=== PATIENT | female | born 1985 | race Caucasian/White ===

== ENCOUNTER → 2020-08-17 12:29 | Outpatient (CLI) | payer OTHER, SELFPAY ==
--- NOTE | ~2020-08-17 | US_ITS ---
EXAMINATION: US abdomen complete EXAM DATE: 08/17/2020 13:09 INDICATION: R17 - Unspecified jaundice. Elevated bilirubin. Anemia. Blood disorder. Hereditary sphero cytosis. TECHNIQUE: Multiple grayscale and Doppler images of the complete abdomen were obtained (by a technolo migdalia who performed the scan) and subsequently reviewed. There is no prior study for comparison. FINDINGS: The abdominal aorta is normal in caliber. Visualized portion IVC is patent. The pancreatic head a nd body are normal in appearance. The pancreatic tail is not visualized. The liver has normal echogenicity and contour. There are no focal liver lesions identified. There is no evidence of intrahepatic biliary duct dilation. Portal venous flow was seen in the hepatopedal , normal direction and has normal Doppler waveform. Common bile duct measures 5 mm, which is normal. The gallbladder fossa is unremarkable. Right kidney: There is normal contour and echogenicity. It measures 11.2 x 3.9 x 5.0 centimeters. There are no focal renal lesions identified. There is no hydronephrosis. Left kidney: There is normal contour and echogenicity. It measures 11.3 x 7.3 x 6.5 centimeters. T here are no focal renal lesions identified. There is no hydronephrosis. The spleen measures 17.5 x 10.9 x 17.2 cm, severely enlarged. IMPRESSION: Severe splenomegaly. Reviewed, dictated and finalized at location B. R SEAMER IMPRESSION: Severe splenomegaly.
== END ==
PROVIDERS: PCP Family Medicine; Visit Provider Physician Assistant Medical
DX: R17 Unspecified jaundice (principal); R16.1 Splenomegaly, not elsewhere classified
CPT/HCPCS: 76700

== ENCOUNTER 2021-08-23 10:05 | Outpatient (CLI) | payer OTHER, SELFPAY ==
--- NOTE | ~2021-08-23 | US_ITS ---
EXAMINATION: US abdomen complete EXAM DATE: 08/23/2021 10:58 INDICATION: R10.9 - Unspecified abdominal pain . TECHNIQUE: Multiple grayscale and Doppler images of the complete abdomen were obtained (by a technolo gist who performed the scan) and subsequently reviewed. Comparison is made to prior examination from 08/17/2020. FINDINGS: The abdominal aorta is normal in caliber. Visualized portion IVC is patent. The pancreatic head a nd body are normal in appearance. The pancreatic tail is not visualized. Mild liver surface undulations without jarrell nodularity. There are no focal liver lesions identified . There is no evidence of intrahepatic biliary duct dilation. Portal venous flow was seen in the h epatopedal, normal direction and has normal Doppler waveform. Common bile duct measures 4 mm, which is normal. The gallbladder fossa is unremarkable. Right kidney: There is normal contour and echogenicity. It measures 11.3 x 5.5 x 4.7 centimeters. There are no focal renal lesions identified. There is no hydronephrosis. Left kidney: There is normal contour and echogenicity. It measures 12.0 x 4.6 x 4.5 centimeters. T here are no focal renal lesions identified. There is no hydronephrosis. The severe splenomegaly, spleen measuring 22 x diameter 8 cm in thickness, measured 17 cm maximally a year ago. IMPRESSION: Severe splenomegaly. Reviewed, dictated and finalized at location B. R TECHNICIAN IMPRESSION: Severe splenomegaly.
== END 2021-08-23 10:06 | disposition home or self-care (01) ==
LOC: ANHIMG 10:14
PROVIDERS: PCP Family Medicine; Visit Provider Nurse Practitioner Family
DX: D64.9 Anemia, unspecified (principal); M25.50 Pain in unspecified joint; E61.1 Iron deficiency; R10.9 Unspecified abdominal pain; R16.1 Splenomegaly, not elsewhere classified; Z13.220 Encounter for screening for lipoid disorders; Z13.29 Encounter for screening for other suspected endocrine disorder
CPT/HCPCS: 76700

== ENCOUNTER 2022-12-06 11:20 | Emergency (ER) | payer OTHER, SELFPAY ==
[2022-12-06 11:28] VITALS: BP 116/78; PULSE 61; RESP 18; TEMP 36.8; O2SAT 98
--- NOTE | 2022-12-06 11:54 | ED.ABDPAIN ---
HPI - Abdominal Pain General Chief Complaint: Abdominal Pain Stated Complaint: Lower Lt Abdominal Pain Time Seen by Provider: 12/06/22 11:55 Source: patient and RN notes reviewed Mode of arrival: ambulatory Limitations: no limitations History of Present Illness HPI narrative: 37-year-old female presents with concern for left lower quadrant abdominal pain that started 4 days ago. She reports it is sharp and stabbing in nature, constant. She reports she just is finishing her menstrual cycle, she has no concern for . She denies constipation, vomiting, nausea. She denies urinary frequency, urgency, hematuria. She reports she has trouble getting comfortable due to the pain. MD elicited complaint: abdominal pain Related Data Allergies Allergy/AdvReac Type Severity Reaction Status Date / Time morphine AdvReac Unknown Hives Verified 12/06/22 11:47 Penicillins AdvReac Unknown Hives Verified 12/06/22 11:47 Review of Systems Review of Systems: CONSTITUTIONAL: Denies malaise, chills, sweats, or fever. ENT: Denies rhinorrhea, congestion, sinus pain, otalgia or sore throat. CARDIOVASCULAR: Denies chest pain, palpitations, or edema. RESPIRATORY: Denies cough or dyspnea. GASTROINTESTINAL: Reports left lower quadrant abdominal pain. Denies nausea, vomiting, diarrhea, bloody, or mucous stools. GENITOURINARY: Denies dysuria or hematuria. MUSCULOSKELETAL: Denies myalgia. NEUROLOGIC: Denies headache. All systems reviewed & are unremarkable except as noted in HPI and below PMFSH Past Medical History Medical History Acute pain of right knee Acute sinusitis, unspecified Anemia Hereditary spherocytosis Impetigo Injury of other nerves at ankle and foot level, right leg, initial encounter Mid back pain Pityriasis rosea Right rib fracture Surgical History Surgical History H/O splenectomy History of cholecystectomy Previous section x1 Family History Family History Grandparent Family history of coronary artery disease Diabetes mellitus Father Heart disease Hypertension Thyroid activity decreased Mother Thyroid activity decreased Blood disorder Sibling No problems noted. 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 Gender identity (if verbalized by the patient): Female Comments At time of signature, agree with nursing past medical, surgical, social and family history. There is no relevant family history pertinent to the presenting complaint Exam Narrative: GENERAL: Well-appearing, well-nourished, and in no acute distress. HEAD: Normocephalic, atraumatic. EYES: PERRLA, conjunctivae clear, and EOMI. ENT: Nares clear. Mucous membranes moist. NECK: Supple. No lymphadenopathy CHEST: Speaks in full sentences. No respiratory distress. HEART: Regular rate and rhythm. ABDOMEN: Left lower quadrant tenderness SKIN: Warm, dry, no rash. NEURO: Alert and oriented x3. PSYCH: Normal mood and affect Course Course Emergency Course: Patient is aware of, understands and agrees to be transferred to the emergency department. Patient agrees to proceed directly to the emergency department. Portions of this record may have been created with voice recognition software Level of Care: Express Care Visit Vital Signs Vital signs: Vital Signs Temperature 98.2 F 12/06/22 11:28 Pulse Rate 61 12/06/22 11:28 Respiratory Rate 18 12/06/22 11:28 Blood
== END 2022-12-06 12:09 | disposition short-term general hospital (02) ==
PROVIDERS: Emergency Provider Nurse Practitioner; PCP Family Medicine
DX: R10.32 Left lower quadrant pain (principal); Z87.891 Personal history of nicotine dependence
CPT/HCPCS: 81003; 99212; G0463

== ENCOUNTER 2022-12-06 12:23 | Emergency (ER) | payer OTHER, SELFPAY ==
[2022-12-06] VITALS (30 sets, daily range): BP systolic 92–134; BP diastolic 58–107; PULSE 57–97; RESP 14–19; TEMP 36.6; O2SAT 93–100
--- NOTE | ~2022-12-06 | CT_ITS ---
EXAMINATION: CT abdomen pelvis w con DATE: 12/06/2022 15:22 INDICATION: Left lower quadrant abdominal pain. Diarrhea. Nausea. TECHNIQUE: Computed tomography (CT) of the abdomen and pelvis was performed with 100 mL Omnipaque 350 intravenous contrast. Automated exposure control and iterative reconstruction technique were employe d. The dose-length product was 761.94 mGy-cm. COMPARISON: None. FINDINGS: The visualized portions of the lung bases demonstrate mild atelectasis. No pleural effusion . The heart size is normal. No pericardial effusion. The liver is normal. There are changes of cholec ystectomy. There are changes of splenectomy. The pancreas, adrenal glands, and kidneys are normal. Th ere is a supraumbilical ventral hernia containing fat. There are no dilated loops of bowel. The appen miguelina is normal. There are no pathologically enlarged lymph nodes. There is no free intraperitoneal flu id. There are old healed fractures of the superior pubic rami and left inferior pubic ramus. There is mild thoracolumbar spondylosis. IMPRESSION: 1. Supraumbilical ventral hernia containing fat. Reviewed, dictated and finalized at location E.
--- NOTE | ~2022-12-06 | US_ITS ---
EXAMINATION: US pelvic complete w TV DATE: 12/06/2022 14:51 INDICATION: Left lower quadrant pain. Comparison:04/25/2011 TECHNIQUE: Multiple transabdominal and endovaginal sonographic images of the pelvis performed. FINDINGS: The uterus measures 9.6 x 4.8 x 4.8 cm. The endometrial complex measures 4 mm. The right ovary measures 2.9 x 1.8 x 2.4 cm and the left ovary measures 2.9 x 1.9 x 2.5 cm. There ar e small follicles in each ovary. Normal doppler signal in both ovaries. There is no free fluid in the pelvis. There are no abnormal masses seen on either side. IMPRESSION: 1. Unremarkable pelvic ultrasound. Reviewed, dictated and finalized at location L.
--- NOTE | 2022-12-06 13:00 | PC.NURSE ---
Assumed care of pt at 1300. Report from BEKAH Carcamo
[2022-12-06 13:05] LABS: Basophils Absolute Auto 0.2 K/mm3 (0.0-0.1); Basophils Percent Auto 1.9 % (0.2-1.2); Eosinophils Absolute Auto 0.2 K/mm3 (0-0.3); Eosinophils Percent Auto 2.9 % (0-4.4); Hematocrit 39.5 % (37.0-47.0); Hemoglobin 14.6 g/dL (12.0-15.0); Immature Granulocyte Absolute 0.01 K/mm3 (0.00-0.031); Immature Granulocyte Percent A 0.1 % (0-0.5); Immature Platelet Fraction Pct 4.8 % (0.9-11.2); Lymphocytes Absolute Auto 3.66 K/mm3 (0.9-3.2); Mean Corpuscular Hemoglobin 33.6 pg (26-34); Mean Platelet Volume 9.9 fl (7.4-10.4); Monocytes Percent Auto 12.4 % (2.6-8.5); Neutrophils Absolute Auto 2.9 K/mm3 (1.3-6.7); Neutrophils Percent Auto 36.7 % (45.5-73.1); Platelet Count Result 526 k/mm3 (150-375); Red Blood Count 4.34 M/mm3 (4.2-5.4); Red Cell Distribution Width 11.4 % (11.5-14.5)
[2022-12-06 13:09] LABS: Lactic Acid Reflex 0.8 mmol/L (0.7-2.0)
[2022-12-06 13:10] LABS: Alanine Aminotransferase 53 U/L (6-35); Albumin Level 4.7 g/dL (3.5-5.1); Alkaline Phosphatase 64 U/L (38-126); Anion Gap 6 mmol/L (8-16); Aspartate Amino Transferase 42 U/L (14-36); Bilirubin,Total 1.1 mg/dL (0.2-1.3); Blood Urea Nitrogen 9 mg/dL (7-17); Calcium 9.1 mg/dL (8.4-10.2); Carbon Dioxide 28 mmol/L (22-30); Chloride 104 mmol/L (98-107); Estimated CRCL calculation 132 ml/min; Estimated Glomerular Filt Rate > 60; Glucose 85 mg/dL (65-110); Lipase 55 U/L (23-300); Potassium 4.3 mmol/L (3.4-5.0); Sodium 138 mmol/L (137-145)
[2022-12-06 13:12] LABS: Appearance Urine Cloudy (Clear); Bacteria Urine None Seen /hpf; Bilirubin Urine Negative (Negative); Blood Urine 2+ (Negative); Color Urine Yellow (Yellow); Glucose Urine UA Negative (Negative); Ketones Urine Negative (Negative); Leukocyte Esterase Ur Negative LEU/UL (Negative); Nitrate Urine Negative (Negative); Non Pathogenic Casts 0-2; Protein Urine Negative (Negative); RBC Urine 0-2 /hpf (0-2); Specific Grav Ur 1.011 (1.001-1.035); Squamous Epithelial Cell Urine None seen /hpf (Few); Urobilinogen Urine 0.2 mg/dL (<2.0); WBC Urine 0-5 /hpf; pH Urine 6.5 (5.0-9.0)
--- NOTE | 2022-12-06 13:12 | PC.NURSE ---
Patient report to BEKAH Em. All questions answered and care of patient transferred.
[2022-12-06 13:14] LABS: Add Urine Microscopic? YES
--- NOTE | 2022-12-06 13:24 | ED.ABDPAIN ---
HPI - Abdominal Pain General Chief Complaint: Abdominal Pain Stated Complaint: LLQ abd pain Time Seen by Provider: 12/06/22 12:37 History of Present Illness HPI narrative: 37-year-old female presenting to the ED for evaluation of left lower quadrant pain since Saturday. Patient describes the pain as sharp. Patient did just complete her menstrual cycle and is only having spotting at this point. Patient states she has had a prior diagnosis of an ovarian cyst that was seen on a prior ultrasound. Patient does have prior history of splenectomy. Patient denies any prior history of diverticulitis. Related Data Allergies Allergy/AdvReac Type Severity Reaction Status Date / Time morphine AdvReac Unknown Hives Verified 12/06/22 12:27 Penicillins AdvReac Unknown Hives Verified 12/06/22 12:27 Review of Systems Review of Systems: All systems reviewed & are unremarkable except as noted in HPI and below PMFSH Past Medical History Medical History Acute pain of right knee Acute sinusitis, unspecified Anemia Hereditary spherocytosis Impetigo Injury of other nerves at ankle and foot level, right leg, initial encounter Mid back pain Pityriasis rosea Right rib fracture Surgical History Surgical History H/O splenectomy History of cholecystectomy Previous section x1 Family History Family History Grandparent Family history of coronary artery disease Diabetes mellitus Father Heart disease Hypertension Thyroid activity decreased Mother Thyroid activity decreased Blood disorder Sibling No problems noted. 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 Gender identity (if verbalized by the patient): Female Exam Narrative: APPEARANCE: Uncomfortable due to abdominal pain HEAD: normocephalic, atraumatic. EYES: PERRLA/EOMI, conjunctivae clear. NOSE: Normal no drainage NECK: Supple. No adenopathy, no masses. RESPIRATORY: Airway patent, respirations nonlabored. Clear to auscultation bilaterally, no rales, rhonchi, wheezing. CARDIOVASCULAR: Regular rate and rhythm without murmurs rubs or gallops. ABDOMINAL: Left lower quadrant/pelvic pain. MUSCULOSKELETAL: Moves all extremities. Strength/ROM intact, No edema, No calf tenderness. NEURO: Alert. Cranial nerves II through XII intact. Grossly intact SKIN: Warm, dry. Normal Color Course Course Emergency Course: 37-year-old female with lower left pelvic pain. Patient is afebrile with no leukocytosis. Patient's CMP shows no significant abnormalities. Patient's lactate and lipase are normal. UA does show some blood but patient states she is spotting. Patient denies any prior history of kidney stones. Due to the location of the patient's pain ultrasound is being ordered to evaluate for torsion. Patient was provided IV medications for pain control. Patient was updated on the plan for imaging. Ultrasound was negative. CT scan was ordered to evaluate for diverticulitis or retained urinary calculi. Patient did feel improved with treatment. Patient was updated on the results of the work-up and the differential diagnosis. Patient was encouraged to have close follow-up with her primary care physician. Patient was provided medications for pain control for home. Patient was also educated on reasons to return to the department. All questions and concerns were addressed Vital Signs Vital signs: Vital Signs Temperature 97.
--- NOTE | 2022-12-06 13:40 | PC.NURSE ---
Assumed care for pt. Report from BEKAH Carcamo
--- NOTE | 2022-12-06 14:22 | PC.NURSE ---
Attempted to obtain vital signs and pass medications, pt was not in their room.
[2022-12-06] MEDS: SODIUM CHLORIDE 0.9% IV 1,000 ML 999 ML IV CONT (14:33)
[2022-12-06] MEDS: HYDROmorphone HCL INJ (*CRX) 1 MG/ML SYR 0.5 MG IV PUSH ×2 (14:34→16:42)
[2022-12-06] MEDS: KETOROLAC 15 MG/ML VIAL (*BKC) IV PUSH (16:41)
== END 2022-12-06 17:40 | disposition home or self-care (01) ==
PROVIDERS: Emergency Provider Emergency Medicine; PCP Family Medicine
DX: R10.2 Pelvic and perineal pain (principal); R31.9 Hematuria, unspecified; Z86.2 Personal history of diseases of the blood and blood-forming organs and certain disorders involving the immune mechanism; Z87.891 Personal history of nicotine dependence; Z90.81 Acquired absence of spleen; Z90.49 Acquired absence of other specified parts of digestive tract; K43.9 Ventral hernia without obstruction or gangrene
CPT/HCPCS: 36415; 74177; 76830; 76856; 80053; 81001; 81003; 81025; 83605; 83690; 85025; 85055; 96361; 96374; 96375; 96376; 99284; J1170; J1885; J7030; Q9967

== ENCOUNTER 2023-10-18 00:14 | Day surgery (SDC) | payer OTHER, SELFPAY ==
[2023-10-09 11:01] VITALS: BMI 30.2
--- NOTE | 2023-10-09 11:06 | PC.NURSE ---
Report to the Outpatient Waiting Room, entrance under the green pavilion located off [facility], at time 0600 on date 10/18/23. Planned Procedure Time: 0730. Time changes happen often and if your time is changed the preop area will call you the afternoon before. - You and your visitor will be asked to self-screen and do not enter if you have any COVID symptoms. - A mask is optional within the hospital at this time. Patients may have clear liquids (water, carbonated beverages, clear teas, apple juice) until 3 hours prior to surgery with a maximum of 20 ounces. - No food from midnight until time of surgery Take the following medications with a SIP of water the morning of surgery: SERTRALINE DO NOT STOP ANY OF YOUR OTHER PRESCRIPTION MEDICATIONS PRIOR TO SURGERY ?EXCEPT THE FOLLOWING Medications to discontinue per physician: N/A Date to take last dose: N/A Please no make-up, nail spanish, hairspray, perfume, deodorant, or body powder the day of surgery. No jewelry (including any body piercings) or valuables the day of surgery, leave them at home. Please take a shower or bath the night before, or the morning of, surgery with an antibacterial soap. Wear comfortable, loose fitting clothing. - Jewelry must be removed prior to entering the operating room. Rings and piercings that are not removed may be cut off. - The hospital will not accept responsibility for valuables. - Please leave all valuables, including medications, at home the day of surgery. If you are going home after surgery, a licensed taxicab driver must drive you home. - NO public transportation without another adult if you receive anesthesia. - We recommend that an adult stay with you for 24 hours following discharge. - We also recommend that you do not drive, make important decision, drink alcoholic beverages, or take any drugs that were not prescribed by your health care provider for at least 24 hours after your discharge time. Follow any additional instructions given to you from your surgeon. If you or anyone in your household have experienced Covid symptoms in the past week, please notify your surgeon or the nurse liaison at the phone number below for possible testing. Telephone instructions given to LISA KERN and asked if any additional questions and then verbalized understanding. Patient advised to call surgeon office or pre surgery nurse liaison [phone] if any additional questions.
--- NOTE | 2023-10-17 11:24 | WPDANESEPPF ---
Anes - Initial Pre Proc Eval Procedure: Operation Date: 10/18/23 09:00 Proposed Procedures p Hysteroscopy, Dilation and Curettage with Fay Endometrial Ablation - Eulogio Olvera MD Date/Time: 10/17/23 11:24 Surgeon: Eulogio Olvera MD Pre Op Diagnosis: menorrhagia Patient Data Age: 38 Gender: F Height: 1.75 m Weight: 93 kg Allergies Allergy/AdvReac Type Severity Reaction Status Date / Time morphine AdvReac Unknown Hives Verified 10/18/23 08:05 Penicillins AdvReac Unknown Hives Verified 10/18/23 08:05 Home Medications Medication Instructions Recorded Confirmed Type sertraline 100 mg tablet (Zoloft) 100 mg PO DAILY #90 tabs 07/01/23 10/18/23 Rx lisdexamfetamine 30 mg capsule 30 mg PO DAILY attention deficit 10/15/23 10/18/23 Rx (Vyvanse) #30 caps Patient hx anesthesia problems: none Family hx anesthesia problems: none Results Review: All pre-operative results and documents have been reviewed as part of the pre-operative evaluation. [facility] Past Medical History Medical History (Updated 10/17/23 @ 11:25 by Santy Jha DO) Acute pain of right knee ADHD Anemia BMI 29.0-29.9,adult Hereditary spherocytosis Impetigo Injury of other nerves at ankle and foot level, right leg, initial encounter Mid back pain Pityriasis rosea PMDD (premenstrual dysphoric disorder) Right rib fracture Surgical History Surgical History H/O splenectomy History of cholecystectomy Previous section x1 Family History Family History Grandparent Family history of coronary artery disease Diabetes mellitus Father Heart disease Hypertension Thyroid activity decreased Mother Thyroid activity decreased Blood disorder Sibling No problems noted. Social History Social History Smoking packs per day: 1 Smoking cigarettes per day: 20.0 Years smoked: 15 Smoking pack-years: 15.00 Smoking status: Former smoker Tobacco type: cigarettes Second hand tobacco smoke exposure: Yes Smoking end date: 02/12/19 Alcohol intake: former Substance use: never Substance use type: does not use Lack of Transportation: No Lack of Food: Never True Current Housing: I Have Housing Concerned About Future Housing: No Difficulty Paying Gas/Electric Bills: No Difficulty Paying for Meds: No Currently Unemployed: No Difficulty w/ Childcare or Family Care: No Living arrangements: with family Occupation/Education: occupation 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 Gender identity (if verbalized by the patient): Female Spiritual care concerns: No Anes - Eval Final PreProcedure Day of Procedure 10/17/23 11:24 Patient weight: overweight Heart: regular rate and rhythm Lungs: clear to auscultation Airway: Mallampati scale class II Neurological: alert and oriented Last oral intake: >/= 8 hours ASA classification: II Emergent: no Anesthetic plan: proceed Anesthesia type and monitoring: general GIVS and standard monitoring Results Review: All pre-operative results and documents have been reviewed as part of the pre-operative evaluation. Informed Consent: The patient's anesthetic plan and its attendant risks and benefits were discussed with the patient/family/POA. Questions were solicited and answers provided to the satisfaction of the patient/family/POA.
[2023-10-18 07:13] VITALS: BP 116/77; PULSE 85; RESP 20; TEMP 36.9; O2SAT 96
[2023-10-18] MEDS: ACETAMINOPHEN 500 MG TABLET 1000 MG PO (08:11)
[2023-10-18] MEDS: LACTATED RINGERS 1,000 ML 30 ML IV CONT (08:15)
--- NOTE | 2023-10-18 08:32 | PM.IMHP ---
H&P: HPI History of Present Illness Date/Time: 10/18/23 08:32 Chief Complaint: Heavy periods Narrative: 38 y/o with history of heavy periods, not relieved with hormonal options or lysteda. Benign endometrial biopsy. She declines IUD. She has opted for endometrial ablation. She is aware ablation not a contraception option, she states she did not have to worry about getting . Review of Systems Review of Systems: All systems reviewed & are unremarkable except as noted in HPI and below Cardiovascular: Cardiovascular: Reports no additional cardiovascular complaints, Denies chest pain and Denies dyspnea Respiratory: Respiratory: Reports no additional respiratory complaints and Denies dyspnea Gastrointestinal: Gastrointestinal: Reports abdominal pain, Denies change in bowel habits, Denies diarrhea, Denies nausea and Denies vomiting Genitourinary: Genitourinary: Reports pelvic pain Musculoskeletal: Musculoskeletal: Reports back pain Integumentary/Breasts: Skin/Breast: Reports system reviewed and no additional complaints, except as docu Neurologic: Reports system reviewed and no additional complaints, except as documented PMFSH Past Medical History Medical History Acute pain of right knee ADHD Anemia BMI 29.0-29.9,adult Hereditary spherocytosis Impetigo Injury of other nerves at ankle and foot level, right leg, initial encounter Mid back pain Pityriasis rosea PMDD (premenstrual dysphoric disorder) Right rib fracture Surgical History Surgical History H/O splenectomy History of cholecystectomy Previous section x1 Family History Family History Grandparent Family history of coronary artery disease Diabetes mellitus Father Heart disease Hypertension Thyroid activity decreased Mother Thyroid activity decreased Blood disorder Sibling No problems noted. Social History Social History Smoking packs per day: 1 Smoking cigarettes per day: 20.0 Years smoked: 15 Smoking pack-years: 15.00 Smoking status: Former smoker Tobacco type: cigarettes Second hand tobacco smoke exposure: Yes Smoking end date: 02/12/19 Alcohol intake: former Substance use: never Substance use type: does not use Lack of Transportation: No Lack of Food: Never True Current Housing: I Have Housing Concerned About Future Housing: No Difficulty Paying Gas/Electric Bills: No Difficulty Paying for Meds: No Currently Unemployed: No Difficulty w/ Childcare or Family Care: No Living arrangements: with family Occupation/Education: occupation 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 Gender identity (if verbalized by the patient): Female Spiritual care concerns: No Meds Home Medications and Allergies Home Medications Medication Instructions Recorded Confirmed Type sertraline 100 mg tablet (Zoloft) 100 mg PO DAILY #90 tabs 07/01/23 10/18/23 Rx lisdexamfetamine 30 mg capsule 30 mg PO DAILY attention deficit 10/15/23 10/18/23 Rx (Vyvanse) #30 caps Allergies Allergy/AdvReac Type Severity Reaction Status Date / Time morphine AdvReac Unknown Hives Verified 10/18/23 08:05 Penicillins AdvReac Unknown Hives Verified 10/18/23 08:05 Vital Signs Vital Signs - 24 hr 10/18/23 07:13 Temperature 98.5 F Pulse Rate 85 Respiratory Rate 20 Blood Pressure 116/77 Pulse Oximetry 96 Oxygen Delivery Room Air Exam Const: Orientation/consciousness: oriented to person and oriented to place HENMT: Head: normal to inspection Eyes: General: appearance normal, both eyes and all related structures Resp: Effort & Inspection: normal respiratory effort Auscultation: clear to auscultation bilaterally Cardio: Rate
--- NOTE | 2023-10-18 08:35 | WPDHPUPDATE1 ---
History and Physical Update Update Date/Time: 10/18/23 08:35 History and Physical has been reviewed, including an updated exam of the patient. There are NO changes in the patient's condition. Risks, benefits, and alternatives have been discussed and questions answered. Patient agrees to proceed with procedure.
[2023-10-18] MEDS: ceFAZolin 2 GM/D5W 50 ML 2 GM/50 ML BAG IVPB (09:00)
[2023-10-18] MEDS: LIDOCAINE HCL 1% LOCAL INJ 10 ML VIAL INFILTRATE (09:10)
[2023-10-18 09:35] VITALS: BP 112/67; PULSE 80; RESP 18; O2SAT 99
--- NOTE | 2023-10-18 09:40 | P.OP_ITS ---
Procedure Note - Detailed Date of Procedure 10/18/23 Pre-op Diagnosis menorrhagia Post-op Diagnosis Same Procedure Performed Hysteroscopy dilation and curettage and endometrial ablation with Fay Surgeon Eulogio Olvera MD Anesthesia MAC and Local Indications Menorrhagia Findings Uterine sound to 9cm cervical sound to 5cm uterine cavity with proliferative endometrial tissue no lesions Description of Procedure After informed consent was obtained patient was taken to the operating room and adequate IV sedation was administered. Attention was turned to the vagina. Speculum was inserted. Single-tooth ten aculum placed on the anterior lip of the cervix. The uterus was sounded to 9cm. The cervix was dilated to an 8 Keen dilator. The cervical length was 5 . The hysteroscope was inserted into the cavity. The findings were a normal uterine cavity. The hysteroscope was removed. The Fay ablation instrument was inserted into the cavity. Cavity assessment was performed and confirmed intact. The ablation was enabled. After 120 seconds the Fay stopped. The ablation instrument was removed. The hysteroscope was inserted and there was noted to be good eschar with the cavity. The hysteroscope was removed the single-tooth tenaculum was removed hemostasis was noted at the tenaculum site. Sponge count correct. The patient taken to recovery in stable condition.
[2023-10-18 10:00] VITALS: BP 109/74; PULSE 70; RESP 18
[2023-10-18] MEDS: oxyCODONE HCL (*CRX) 5 MG TAB IR PO (10:21)
[2023-10-18 10:30] VITALS: BP 124/67; PULSE 75; RESP 18
== END 2023-10-18 10:50 | disposition home or self-care (01) ==
PROVIDERS: PCP Family Medicine; Visit Provider Obstetrics & Gynecology
PROC: 0U5B8ZZ Destruction of Endometrium, Via Natural or Artificial Opening Endoscopic (ICD-10-PCS; CPT 58563; principal; 2023-10-18 09:00)
DX: N92.0 Excessive and frequent menstruation with regular cycle (principal); F90.9 Attention-deficit hyperactivity disorder, unspecified type; Z87.891 Personal history of nicotine dependence
CPT/HCPCS: 58563; 88305; A9270; J0690; J2250; J2405; J2704; J3010; J7120